=== PATIENT | female | born 1995 | race African-American/Black ===

== ENCOUNTER 2017-06-26 15:19 | Emergency (ER) | payer SELFPAY ==
[~2017-06-26] VITALS: Ht 182.9 cm; Wt 93.2 kg
[2017-06-26 15:37] VITALS: BP 120/62; PULSE 80; RESP 18; TEMP 98.6; O2SAT 100
--- NOTE | 2017-06-26 21:18 | PD ---
Physical Exam Date Seen by Provider: Jun 26, 2017 Time Seen by Provider: 16:35 Narrative 22 year old female presents to the emergency department for evaluation of nausea , abdominal pain for 2 weeks. Current pain is 7/10. Moderate severity. Data Data Last Documented VS Vital Signs Date Time Temp Pulse Resp B/P (MAP) Pulse Ox O2 Delivery O2 Flow Rate FiO2 06/26/17 15:37 98.6 80 18 120/62 (81) 100 Orders Orders Complete Blood Count With Diff (06/26/17 15:39) Comprehensive Metabolic Panel (06/26/17 15:39) Lipase (06/26/17 15:39) Urinalysis - C+S If Indicated (06/26/17 15:39) Ed Urine Pregnancytest Poc (06/26/17 15:39) [facility] Supervised Visit with MARY: No Narrative Course 22 year old female presents to the emergency department for evaluation of abdominal pain. Patient was initially seen in triage and work up was initiated. Patient left AMA before he could be moved to a medical bed. Diagnosis Primary Impression: Left against medical advice Patient Instructions: General Instructions Departure Forms: Tests/Procedures Disposition: 07 AGAINST MEDICAL ADVICE Emily Vazquez Jun 26, 2017 21:18
== END 2017-06-26 16:35 | disposition left against medical advice (07) ==
LOC: NETRI 15:19
DX: Z53.21 Procedure and treatment not carried out due to patient leaving prior to being seen by health care provider (principal); R10.9 Unspecified abdominal pain
CPT/HCPCS: 99281